=== PATIENT | female | born 1935 | race Caucasian/White ===

== ENCOUNTER 2017-04-02 09:00 | Outpatient (RCR) | payer MEDICARE | END 2017-08-19 | disposition still patient (30) | LOC: CARDREHAB | DX: Z48.812 Encounter for surgical aftercare following surgery on the circulatory system (principal); I21.3 ST elevation (STEMI) myocardial infarction of unspecified site; Z95.5 Presence of coronary angioplasty implant and graft ==

== ENCOUNTER 2017-04-02 11:46 | Outpatient (RCR) | payer MEDICARE | END 2017-07-01 | disposition home or self-care (01) | LOC: CARDREHAB | DX: Z48.812 Encounter for surgical aftercare following surgery on the circulatory system (principal); I21.3 ST elevation (STEMI) myocardial infarction of unspecified site; Z95.5 Presence of coronary angioplasty implant and graft ==

== ENCOUNTER → 2017-06-26 | Outpatient (CLI) | payer MEDICARE | LOC: VAS 16:23 | DX: I25.119 Atherosclerotic heart disease of native coronary artery with unspecified angina pectoris (principal) ==

== ENCOUNTER 2017-12-08 12:22 | Emergency (ER) | payer MEDICARE ==
[~2017-12-08] VITALS: Ht 170.2 cm; Wt 75.0 kg
[2017-12-08] MEDS ORDERED: ATORVASTATIN CA80 MG PO (12:52)
[2017-12-08] MEDS ORDERED: PROAIR HFA0.09 MG/AC IH (12:52)
[2017-12-08] MEDS ORDERED: ASPIRIN E.C. 8181 MG PO (12:52)
[2017-12-08] MEDS ORDERED: LORATADINE10 M2 PO (12:53)
[2017-12-08] MEDS ORDERED: TOPROL XL 25MG25 MG PO (12:53)
[2017-12-08] MEDS ORDERED: ZESTRIL5 M1 PO (12:53)
[2017-12-08] MEDS ORDERED: BRILINTA90 MG PO (12:54)
[2017-12-08] MEDS ORDERED: NITROSTAT0.3 MG SL (12:54)
[2017-12-08 14:30] VITALS: BP 103/54
== END 2017-12-08 14:32 | disposition home or self-care (01) ==
LOC: ED 12:22
DX: S00.83XA Contusion of other part of head, initial encounter (principal); I10 Essential (primary) hypertension; I25.2 Old myocardial infarction; Z79.82 Long term (current) use of aspirin

== ENCOUNTER 2018-07-19 17:17 | Emergency (ER) | payer MEDICARE ==
[~2018-07-19 17:17] MED LIST: ASPIRIN E.C. 8181 MG PO; ATORVASTATIN CA80 MG PO; BRILINTA90 MG PO; LORATADINE10 M2 PO; NITROSTAT0.3 MG SL; PROAIR HFA0.09 MG/AC IH; TOPROL XL 25MG25 MG PO; ZESTRIL5 M1 PO
[2018-07-19 18:33] VITALS: BP 126/57
== END 2018-07-19 18:34 | disposition home or self-care (01) ==
LOC: ED 17:17
DX: S01.411A Laceration without foreign body of right cheek and temporomandibular area, initial encounter (principal); S00.83XA Contusion of other part of head, initial encounter; S80.02XA Contusion of left knee, initial encounter; W01.198A Fall on same level from slipping, tripping and stumbling with subsequent striking against other object, initial encounter; Y92.008 Other place in unspecified non-institutional (private) residence as the place of occurrence of the external cause; Z23 Encounter for immunization; Z79.02 Long term (current) use of antithrombotics/antiplatelets; Z79.82 Long term (current) use of aspirin; Z79.899 Other long term (current) drug therapy; I25.10 Atherosclerotic heart disease of native coronary artery without angina pectoris; Z95.5 Presence of coronary angioplasty implant and graft; R40.2412 Glasgow coma scale score 13-15, at arrival to emergency department
CPT/HCPCS: 90715